=== PATIENT | female | born 1965 | race Hispanic/Latino ===

== ENCOUNTER 2021-05-04 06:54 | Emergency (ER) | payer OTHER, SELFPAY ==
[2021-05-04] MEDS ORDERED: Bacitracin 1 PK ONE (07:26)
[2021-05-04] MEDS ORDERED: Lidocaine 1% PF 5 ML VIAL ONE (07:26)
== END 2021-05-04 08:25 | disposition home or self-care (01) ==
LOC: CSHERS 06:54
DX: S51.812A Laceration without foreign body of left forearm, initial encounter (principal); F17.210 Nicotine dependence, cigarettes, uncomplicated; W27.8XXA Contact with other nonpowered hand tool, initial encounter
CPT/HCPCS: 12001